=== PATIENT | male | born 1955 | race Caucasian/White ===

== ENCOUNTER 2019-07-22 00:51 | Emergency (ER) | payer OTHER, MEDICAID ==
[~2019-07-22] VITALS: Ht 185.4 cm; Wt 100.0 kg
[~2019-07-22 00:51] MED LIST: AMLO10TA4 PO; ASPI325T85 PO; ATOR20TA PO
[2019-07-22] MEDS ORDERED: HYDROCODONE/ACETAMINOPHEN 5/325MG TABLET PO STA (02:20)
[2019-07-22 02:57] LABS: BASOPHILS % 1.3 % (0.0-2.0); EOSINOPHILS % 0.7 % (0.0-5.0); HEMATOCRIT. 45.6 % (42.0-52.0); HEMOGLOBIN. 15.4 g/dL (14.0-18.0); LYMPHOCYTES % 24.2 % (20.0-50.0); MEAN CORPUSCULAR HEMOGLOBIN 29.1 pg (28.0-32.0); MEAN CORPUSCULAR VOLUME 86.1 fL (80.0-94.0); MEAN PLATELET VOLUME 8.7 fl (7.4-10.4); MONOCYTES % 7.8 % (2.0-8.0); PLATELET 232 x1000/uL (130-400); RED CELL DISTRIBUTION WIDTH 15.1 % (11.6-14.6)
[2019-07-22 03:01] LABS: CHLORIDE 109 mEq/L (98-107)
[2019-07-22] MEDS ORDERED: KETOROLAC 60MG/2ML VIAL IM STA (05:42)
[2019-07-22] MEDS ORDERED: KETOROLAC 30MG/ML VIAL IV STA (05:44)
[2019-07-22 06:01] VITALS: BP 145/95
== END 2019-07-22 06:02 | disposition home or self-care (01) ==
LOC: ER 00:51
DX: R10.9 Unspecified abdominal pain (principal); R07.89 Other chest pain; R51 Headache; I10 Essential (primary) hypertension; V43.52XA Car driver injured in collision with other type car in traffic accident, initial encounter; Y93.89 Activity, other specified; Y92.410 Unspecified street and highway as the place of occurrence of the external cause; Z79.82 Long term (current) use of aspirin
CPT/HCPCS: 36415; 71260; 74177; 80053; 85025; 96374; 99284; J1885

== ENCOUNTER 2019-08-08 13:34 | Emergency (ER) | payer OTHER, MEDICAID ==
[~2019-08-08] VITALS: Ht 175.3 cm; Wt 89.0 kg
[2019-08-08 13:41] VITALS: BP 140/95
[2019-08-08] MEDS ORDERED: IBUPROFEN 600MG TABLET PO ONE (14:00)
== END 2019-08-08 16:31 | disposition home or self-care (01) ==
LOC: ER 13:34
DX: R07.81 Pleurodynia (principal); R51 Headache; Z79.82 Long term (current) use of aspirin; Z79.899 Other long term (current) drug therapy; V49.49XA Driver injured in collision with other motor vehicles in traffic accident, initial encounter; Y93.89 Activity, other specified; Y92.89 Other specified places as the place of occurrence of the external cause; Y99.8 Other external cause status
CPT/HCPCS: 71101; 99284

== ENCOUNTER 2023-12-10 10:25 | Emergency (ER) | payer MEDICARE, MEDICAID ==
[~2023-12-10] VITALS: Ht 176.5 cm; Wt 95.0 kg
[~2023-12-10 10:25] MED LIST changes: +ASPI-867 PO; -ASPI325T85 PO
[2023-12-10 10:39] VITALS: BP 186/122; PULSE 106; RESP 18; O2SAT 100
[2023-12-10 10:49] VITALS: TEMP 98.3
[2023-12-10] MEDS: ACETAMINOPHEN 325MG TABLET PO STA (10:49)
== END 2023-12-10 15:22 | disposition home or self-care (01) ==
LOC: ER 10:25
DX: M54.2 Cervicalgia (principal); I10 Essential (primary) hypertension
CPT/HCPCS: 72040; 99283